=== PATIENT | female | born 1995 | race Caucasian/White ===

== ENCOUNTER 2017-01-12 12:29 | Emergency (ER) | payer OTHER ==
[~2017-01-12] VITALS: Ht 172.7 cm; Wt 71.0 kg
[2017-01-12 12:34] VITALS: Ht 172.7 cm; Wt 71.0 kg
[2017-01-12] MEDS ORDERED: SODIUM CHLORIDE 0.9% 1000ML 1,000 ML IV STA (13:09)
[2017-01-12] MEDS ORDERED: KETOROLAC TROMETHAMINE 30 MG/ML VIAL IV STA (13:09)
[2017-01-12] MEDS ORDERED: ACETAMINOPHEN 500 MG TAB PO STA (13:09)
--- NOTE | 2017-01-12 13:09 | EMERGENCY ROOM VISIT NOTE ---
History Report prepared by Donald: Merry Hernandez Under the Supervision of: Yolanda NavarroO. First contact with patient: 12:50 Chief Complaint: ILLNESS Stated Complaint: SWOLLEN LYMPH NODES,HEAD/BODY ACHES,COUGHING History of Present Illness The patient is a 21 year old female who presents to the Emergency Room with complaints of an illness beginning several weeks ago. She states that her illness was getting better but that it came back yesterday. The patient states that she has had a productive cough and sore throat. She reports that last week she was coughing up chunks of green mucous. Yesterday she had a migraine, body aches, and fevers. She also reports that she has had swollen lymph nodes. She denies recent travel, but states that she has been around someone with the mumps. She also states that she has had a mumps vaccination. The patient also reports having rashes on her chest since last weekend. The patient denies vomiting and diarrhea. Source of History: patient Onset: several weeks ago Position: other (global) Quality: other (illness) Associated Symptoms: + fevers, + headache, + sorethroat, + cough, + rash ( chest), No vomiting, No diarrhea Review of Systems See HPI for pertinent positives & negatives. A total of 10 systems reviewed and were otherwise negative. Past Medical & Surgical Medical Problems: (1) PNA (pneumonia) (2) UTI (urinary tract infection) Surgical Problems: (1) S/P ACL reconstruction Family History Cancer Diabetes mellitus Heart disease Social History Smoking Status: Never Smoker Alcohol Use: occasionally Housing Status: lives alone Occupation Status: [employer] student Current/Historical Medications Scheduled Benzonatate (Tessalon Perles), 100 MG PO Q8 Allergies Coded Allergies: No Known Allergies (Unverified , 01/12/17) Physical Exam Vital Signs Date Time Temp Pulse Resp B/P (MAP) Pulse Ox O2 Delivery O2 Flow Rate FiO2 01/12/17 16:03 37.0 82 18 119/76 98 01/12/17 15:14 37.5 01/12/17 12:34 38.2 98 16 131/79 95 Room Air Physical Exam GENERAL: alert, well appearing, well nourished, no distress, non-toxic. Tearful. EYE EXAM: normal conjunctiva, PERRL and EOM's grossly intact OROPHARYNX: no exudate, mild erythema, lips, buccal mucosa, and tongue normal and mucous membranes are moist. Mild tonsillar hypertrophy. NECK: supple, no nuchal rigidity, mild adenopathy on the right submandibular region, non-tender LUNGS: Clear to auscultation. Normal chest wall mechanics HEART: no murmurs, S1 normal and S2 normal ABDOMEN: abdomen soft, non-tender, normo-active bowel sounds, no masses, no rebound or guarding. BACK: Back is symmetrical on inspection and there is no deformity, no midline tenderness, no CVA tenderness. SKIN: no rashes and no bruising UPPER EXTREMITIES: upper extremities are grossly normal. LOWER EXTREMITIES: No pitting edema. NEURO EXAM: Normal sensorium, cranial nerves II-XII grossly intact, normal speech, no gross weakness of arms, no gross weakness of legs. No drift. Finger to nose intact. Gross sensation intact. Medical Decision & Procedures ER Provider Diagnostic Interpretation: Radiology results have been interpreted by the radiologist and reviewed by me. CHEST 2 VIEWS ROUTINE HISTORY: 21 years-old Female cough, fever acute cough and fever. Initial exam. COMPARISON: Chest radiograph 02/15/2014 TECHNIQUE: Frontal and lateral views of the chest FINDINGS: Cardiomediastinal and hilar silhouettes are within normal limits. There is no pneumothorax, pleural effusion or focal airspace consolidation. The bones are grossly intact. IMPRESSION: No acute cardiopulmonary process. The above report was generated using voice recognition software. It may contain grammatical, syntax or spelling errors. Electronically signed by: Marcel Garza M.D. 01/12/2017 2:23 PM Dictated Date/Time: 01/12/2017 2:21 PM Laboratory Results 01/12/17 13:43 Red Blood Count 4.56, Mean Corpuscular Volume 89.0, Mean Corpuscular Hemoglobin 30.0, Mean Corpuscular Hemoglobin Concent 33.7, Mean Platelet Volume 10.9, Neutrophils (%) (Auto) 77.5, Lymphocytes (%) (Auto) 11.8, Monocytes (%) (Auto) 10.3, Eosinophils (%) (Auto) 0.2, Basophils (%) (Auto) 0.0, Neutrophils # (Auto ) 7.52, Lymphocytes # (Auto) 1.14, Monocytes # (Auto) 1.00, Eosinophils # (Auto ) 0.02, Basophils # (Auto) 0.00 01/12/17 13:43 Test 01/12/17 13:20 01/12/17 13:43 Urine Color YELLOW Urine Appearance CLEAR (CLEAR) Urine pH 7.5 (4.5-7.5) Urine Specific [place] 1.022 (1.000-1.030) Urine Protein NEG (NEG) Urine Glucose (UA) NEG (NEG) Urine Ketones NEG (NEG) Urine Occult Blood NEG (NEG) Urine Nitrite NEG (NEG) Urine Bilirubin NEG (NEG) Urine Urobilinogen NEG (NEG) Urine Leukocyte Esterase NEG (NEG) Influenza Type A Antigen Neg for Influ A (NEG) Influenza Type B Antigen Neg for Influ B (NEG) White Blood Count 9.70 K/uL (4.8-10.8) Red Blood Count 4.56 M/uL (4.2-5.4) Hemoglobin 13.7 g/dL (12.0-16.0) Hematocrit 40.6 % (37-47) Mean Corpuscular Volume 89.0 fL (80-100) Mean Corpuscular Hemoglobin 30.0 pg (25-34) Mean Corpuscular Hemoglobin Concent 33.7 g/dl (32-36) Platelet Count 170 K/uL (130-400) Mean Platelet Volume 10.9 fL (7.4-10.4) Neutrophils (%) (Auto) 77.5 % Lymphocytes (%) (Auto) 11.8 % Monocytes (%) (Auto) 10.3 % Eosinophils (%) (Auto) 0.2 % Basophils (%) (Auto) 0.0 % Neutrophils # (Auto) 7.52 K/uL (1.4-6.5) Lymphocytes # (Auto) 1.14 K/uL (1.2-3.4) Monocytes # (Auto) 1.00 K/uL (0.11-0.59) Eosinophils # (Auto) 0.02 K/uL (0-0.5) Basophils # (Auto) 0.00 K/uL (0-0.2) RDW Standard Deviation 41.8 fL (36.4-46.3) RDW Coefficient of Variation 12.9 % (11.5-14.5) Immature Granulocyte % (Auto) 0.2 % Immature Granulocyte # (Auto) 0.02 K/uL (0.00-0.02) Anion Gap 9.0 mmol/L (3-11) Est Creatinine Clear Calc Drug Dose 157.4 ml/min Estimated GFR () > 150.0 Estimated GFR (Non- 132.5 BUN/Creatinine Ratio 15.8 (10-20) Calcium Level 9.2 mg/dl (8.5-10.1) Total Bilirubin 0.9 mg/dl (0.2-1) Aspartate Amino Transf (AST/SGOT) 14 U/L (15-37) Alanine Aminotransferase (ALT/SGPT) 17 U/L (12-78) Alkaline Phosphatase 55 U/L (45-117) Total Protein 7.4 gm/dl (6.4-8.2) Albumin 4.0 gm/dl (3.4-5.0) Globulin 3.4 gm/dl (2.5-4.0) Albumin/Globulin Ratio 1.2 (0.9-2) Human Chorionic Gonadotropin, Qual NEG (NEG) Monoscreen NEG (NEG) Date/Time Source Procedure Growth Status 01/12/17 13:20 Throat Group A Streptococcus Screen - Final SPECIMEN NEGATIVE FOR GROUP A BETA ST... Complete 01/12/17 13:20 Group A Streptococcus Screen (AKOSUA) - Final Group C Beta Strep Complete Laboratory results per my review. Medications Administered Medications (Trade) Dose Ordered Sig/Courtney Route Start Time Stop Time Status Last Admin Dose Admin Sodium Chloride 1,000 ml @ 999 mls/hr Q1H1M STAT IV 01/12/17 13:09 01/12/17 14:09 DC 01/12/17 13:45 999 MLS/HR Ketorolac Tromethamine (Toradol Inj) 30 mg NOW STAT IV 01/12/17 13:09 01/12/17 13:10 DC 01/12/17 13:46 30 MG Acetaminophen (Tylenol Tab) 1,000 mg NOW STAT PO 01/12/17 13:09 01/12/17 13:10 DC 01/12/17 13:46 1,000 MG Benzonatate (Tessalon Perles Cap) 100 mg NOW ONCE PO 01/12/17 15:30 01/12/17 15:31 DC 01/12/17 15:52 100 MG Dexamethasone (Decadron Conc Soln) 10 mg NOW ONCE PO 01/12/17 15:45 10/1/17 15:46 DC 01/12/17 16:01 10 MG ECG Indication: other (fever) Rate (beats per minute): 88 Rhythm: sinus rhythm Findings: no acute ischemic change, other (normal axis, normal intervals ) ED Course 1300: The patient was evaluated in room B8. A complete history and physical exam was performed. 1309: Ordered Tylenol Tab 1,000 mg PO, Toradol Inj 30 mg IV, Sodium Chloride 1, 000 ml @ 999 mls/hr IV. 1528: Ordered Dexamethasone 10 mg PO. 1530: Ordered Benzonatate 100 mg PO. 1535: I updated the patient and answered questions she had. 1540: Upon reevaluation, the patient is feeling better. I discussed the findings and the treatment plan with the patient. She verbalizes agreement and understanding. She was discharged home. Medical Decision Differentials include: URI, viral syndrome, strep pharyngitis, peritonsillar abscess, deep space infection, pneumonia, and bronchitis. Likely pt had lingering post viral cough from original illness several weeks prior as she notes she was getting better, then felt worse again yesterday, cough now worse again. No evidence of pneumonia, labs reassuring. Pt with mild submandibular lymphadenopathy, likely reactive from URI, no evidence of strep, no clinical evidence to suggest STUDENT AFFAIRS VICE PRESIDENT/deep space infection. Exam no suggestive of meningitis/encephalitis and I did not feel patient warranted LP - this was discussed with pt at bedside, LP offered for confirmation, pt declined. Pt improved with meds here. Likely viral syndrome. Discussed supportive care, hydration, OTC meds, sx to watch/return for, she verbalized understanding and was agreeable with plan. Mumps titer sent although exam not consistent with mumps. Pt immunized. concerned about exposure. Medication Reconcilliation Current Medication List: was personally reviewed by me Blood Pressure Screening Patient's blood pressure: Normal blood pressure Impression Primary Impression: Fever Additional Impression: Viral syndrome Scribe Attestation The scribe's documentation has been prepared under my direction and personally reviewed by me in its entirety. I confirm that the note above accurately reflects all work, treatment, procedures, and medical decision making performed by me. Departure Information Dispostion Home / Self-Care Prescriptions Benzonatate (Tessalon Perles) 100 Mg Cap 100 MG PO Q8 for Cough, #20 CAP Prov: April Petty, DO 01/12/17 Forms HOME CARE DOCUMENTATION FORM, IMPORTANT VISIT INFORMATION, WORK / SCHOOL INSTRUCTIONS Patient Instructions My [facility] Additional Instructions Please drink plenty of water and stay well-hydrated, you may use Tylenol and ibuprofen as needed for pain. You may use the cough medication as provided. If you have any worsening headache, vision changes, dizziness, light sensitivity , persistent fevers, develop vomiting, blood in your sputum, trouble breathing, you've any other new concerns, please return the emergency room. Please follow up with your family doctor as a precaution. If any of the additional tests result positive, you will be given the phone call. Problem Qualifiers Primary Impression: Fever Fever type: unspecified Qualified Codes: R50.9 - Fever, unspecified
[2017-01-12 13:41] LABS: URINE APPEARANCE CLEAR (CLEAR); URINE BILIRUBIN NEG (NEG); URINE COLOR YELLOW; URINE NITRITE NEG (NEG); URINE PH 7.5 (4.5-7.5); URINE SPECIFIC GRAVITY 1.022 (1.000-1.030); UROBILINOGEN NEG (NEG); ZZUR CULT IF INDIC CLEAN CATCH NO
[2017-01-12 13:43] LABS: MANUAL MICROSCOPIC REQUIRED? NO; REVIEW REQ? NO
[2017-01-12 14:00] LABS: COMPLETE YES; EOS % 0.2 %; HEMATOCRIT 40.6 % (37-47); IG% 0.2 %; LYMPH % 11.8 %; LYMPH ABS # 1.14 K/uL (1.2-3.4); MEAN CORPUSCULAR HGB CONC 33.7 g/dl (32-36); MEAN PLATELET VOLUME 10.9 fL (7.4-10.4); MONO % 10.3 %; NEUT % 77.5 %; PLATELET COUNT 170 K/uL (130-400); RED BLOOD COUNT 4.56 M/uL (4.2-5.4)
[2017-01-12 14:17] LABS: ALT/SGPT 17 U/L (12-78); AST/SGOT 14 U/L (15-37); BLOOD UREA NITROGEN 9 mg/dl (7-18); BUN/CREATININE RATIO 15.8 (10-20); CALCIUM 9.2 mg/dl (8.5-10.1); CARBON DIOXIDE 25 mmol/L (21-32); CHLORIDE 103 mmol/L (98-107); CREATININE 0.57 mg/dl (0.60-1.20); GLUCOSE 88 mg/dl (70-99); SODIUM 137 mmol/L (136-145)
[2017-01-12 14:20] LABS: ALB/GLOB RATIO 1.2 (0.9-2); ALKALINE PHOSPHATASE 55 U/L (45-117)
--- NOTE | 2017-01-12 14:24 | DIAGNOSTIC IMAGING REPORT ---
CHEST 2 VIEWS ROUTINE HISTORY: 21 years-old Female cough, fever acute cough and fever. Initial exam. COMPARISON: Chest radiograph 02/15/2014 TECHNIQUE: Frontal and lateral views of the chest FINDINGS: Cardiomediastinal and hilar silhouettes are within normal limits. There is no pneumothorax, pleural effusion or focal airspace consolidation. The bones are grossly intact. IMPRESSION: No acute cardiopulmonary process. The above report was generated using voice recognition software. It may contain grammatical, syntax or spelling errors. Electronically signed by: Marcel Garza M.D. 01/12/2017 2:23 PM Dictated Date/Time: 01/12/2017 2:21 PM
[2017-01-12 14:29] LABS: PREG INTERNAL NEGATIVE QC NEG CLEAR BACKGROUND; PREG INTERNAL POSITIVE QC POS CONTROL LINE
[2017-01-12] MEDS ORDERED: DEXAMETHASONE CONC 1 MG/ML 30 ML PO STA (15:28)
[2017-01-12] MEDS ORDERED: BENZONATATE 100MG CAP PO ONE (15:30)
[2017-01-12] MEDS ORDERED: BENZ100C84 PO (15:34)
[2017-01-12] MEDS ORDERED: DEXAMETHASONE CONC 1 MG/ML 30 ML PO ONE (15:45)
[2017-01-12 16:03] VITALS: BP 119/76; PULSE 82; TEMP 37; O2SAT 98
== END 2017-01-12 16:04 | disposition home or self-care (01) ==
LOC: C.EDB 12:31
DX: R50.9 Fever, unspecified (principal); R69 Illness, unspecified; Z83.3 Family history of diabetes mellitus; Z82.49 Family history of ischemic heart disease and other diseases of the circulatory system